=== PATIENT | female | born 1975 | race Caucasian/White ===

== ENCOUNTER 2020-10-02 17:38 | Emergency (ER) | payer BC ==
[2020-10-02 17:40] VITALS: O2SAT 100
[2020-10-02] MEDS ORDERED: Zofran 4 MG/2 ML VIAL IV ONE (17:44)
[2020-10-02] MEDS ORDERED: Hydromorphone 1 mg/ml Injection IV ONE ×4 (17:44→20:08)
[2020-10-02] MEDS ORDERED: Hydromorphone 1 mg/ml Injection ONE ×4 (17:46→21:07)
[2020-10-02] MEDS ORDERED: Sodium Chloride 0.9% 1000 ML 1,000 ML ONE ×2 (17:46→19:34)
[2020-10-02] MEDS ORDERED: Zofran 4 MG/2 ML VIAL ONE (17:46)
[2020-10-02] MEDS ORDERED: Sodium Chloride 0.9% 1000 ML 1,000 ML IV STA (18:04)
--- NOTE | 2020-10-02 18:22 | ERPHSYRPT ---
- History of Present Illness Historian: patient Exam Limitations: no limitations Patient Subjective Stated Complaint: Pt went to [facility] today and her liver enzymes are elevated and she began having more severe pain in the right quadrants and was told to come to the ER because she may have a bile duct obstruction Triage Nursing Assessment: Pt brought to the ER by her , hypertensive, rates pain as 9/10, appears to be in significant pain, denies recent N&V, skin n/w/d Physician History: 44 yo wf w RUQ pain x 3 days. Pt rates her pain a 10 and describes it as sharp/ache. It radiates to her back, and nothing makes better or worse. She has had nausea/loose stool wo vomiting/fever/melena/hematochezia/dysuria/hematuria. Pt was seen in clinic today and had labs w elevated LFT's and alkp. Timing/Duration: other (3 days) Quality: aching, sharpness Abdominal Pain Onset Location: RUQ Pain Radiation: back Severity of Pain-Max: severe Severity of Pain-Current: severe Modifying Factors: Improves With: nothing. Worsens With: analgesics, antacids, breathing, coughing, defecating, eating, exercise, lying down, movement, palpation, rest, urinating, vomiting, position, walking Associated Symptoms: loss of appetite, nausea, No back, No chest pain, No diaphoresis, No diarrhea, No fever/chills, No fatigue, No headache, No heartburn, No neck pain, No rash, No shortness of breath, No syncope, No vomiting, No weakness Allergies/Adverse Reactions: No Known Drug Allergies Allergy (Unverified 10/02/20 19:23) Travel Risk - International Travel Have you traveled outside of the country in past 3 weeks: No - Coronavirus Screening Are you exhibiting any of the following symptoms?: No Close contact with a COVID-19 positive Pt in past 14-21 Days: No - Vaccine Status Have you recieved a Covid-19 vaccination: Yes 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 [employer]: Moderna - Vaccination Dates Date of 2cond Vaccination (if applicable): 08/14/2020 - Review of Systems Constitutional: No Symptoms Eyes: No Symptoms Ears, Nose, & Throat: No Symptoms Respiratory: No Symptoms Cardiac: No Symptoms Abdominal/Gastrointestinal: Abdominal Pain, Nausea, Appetite Changes, No Vomiting, No Diarrhea, No Constipation, No Hematemesis, No Hematochezia, No Melena, No Dysphagia Genitourinary Symptoms: No Symptoms Musculoskeletal: No Symptoms Skin: No Symptoms Neurological: No Symptoms Psychological: No Symptoms Endocrine: No Symptoms Hematologic/Lymphatic: No Symptoms Immunological/Allergic: Pollen Allergy - Past Medical History Pertinent Past Medical History: No - Past Surgical History Past Surgical History: Yes Female Surgical History: Hysterectomy Other Surgical History: gastric bypass - Social History Smoking Status: Former smoker Exposure to second hand smoke: No Drug Use: none Patient Lives Alone: No Significant Family History: no pertinent family hx - Female History Hx Now: No - Nursing Vital Signs Nursing Vital Signs: Initial Vital Signs Temperature 98.3 F 10/02/20 17:39 Pulse Rate 63 10/02/20 17:39 Blood Pressure 160/86 10/02/20 17:39 O2 Sat by Pulse Oximetry 100 10/02/20 17:39 Pain Scale Pain Intensity 2 - Physical Exam General Appearance: mild distress Eye Exam: PERRL/EOMI, eyes nml inspection Ears, Nose, Throat Exam: normal ENT inspection, TMs normal, pharynx normal, moist mucous membranes Neck Exam: normal inspection, non-tender, supple, full range of motion, No meningismus, No mass, No Brudzinski, No Kernig's Respiratory Exam: normal breath sounds, lungs clear, airway intact, No respiratory distress Cardiovascular Exam: regular rate/rhythm, normal heart sounds, normal peripheral pulses, No murmur Gastrointestinal/Abdomen Exam: soft (Marked RUQ TTP wo guarding or rebound) Extremity Exam: normal inspection, normal range of motion Neurologic Exam: alert, oriented x 3, cooperative, 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 nml as tested, normal mood/affect, sensation nml Skin Exam: normal color, warm, dry Lymphatic Exam: No adenopathy SpO2 Interpretation: normal SpO2: 100 O2 Delivery: Room Air - Course Nursing assessment & vital signs reviewed: Yes - CT Exams Abdomen/Pelvis CT Interpretation: Discussed w/radiologist (Gallbladder wall thick ening/pericholecystic fluid/biliary distension) Ordered Tests: Active Orders 24 hr Category Date Time Status ABDOMEN AND PELVIS W CONTRAST [CT] Stat Exams 10/02/20 17:43 Taken Medication Summary Discontinued Medications Generic Name Dose Route Start Last Admin Trade Name Freq PRN Reason Stop Dose Admin Hydromorphone HCl 1 mg 10/02/20 17:44 10/02/20 17:48 Hydromorphone 1 Mg/Ml Injection IV 10/02/20 17:45 1 mg STAT ONE Administration Hydromorphone HCl Confirm 10/02/20 17:46 Hydromorphone 1 Mg/Ml Injection Administered 10/02/20 17:47 Dose 1 mg .ROUTE .STK-MED ONE Hydromorphone HCl 0.5 mg 10/02/20 18:03 10/02/20 18:05 Hydromorphone 1 Mg/Ml Injection IV 10/02/20 18:04 0.5 mg STAT ONE Administration Hydromorphone HCl Confirm 10/02/20 18:03 Hydromorphone 1 Mg/Ml Injection Administered 10/02/20 18:04 Dose 1 mg .ROUTE .STK-MED ONE Hydromorphone HCl 0.5 mg 10/02/20 19:02 10/02/20 19:11 Hydromorphone 1 Mg/Ml Injection IV 10/02/20 19:03 0.5 mg STAT ONE Administration Hydromorphone HCl Confirm 10/02/20 19:10 Hydromorphone 1 Mg/Ml Injection Administered 10/02/20 19:11 Dose 1 mg .ROUTE .STK-MED ONE Hydromorphone HCl 1 mg 10/02/20 20:08 10/02/20 21:21 Hydromorphone 1 Mg/Ml Injection IV 10/02/20 20:09 1 mg STAT ONE Administration Hydromorphone HCl Confirm 10/02/20 21:07 Hydromorphone 1 Mg/Ml Injection Administered 10/02/20 21:08 Dose 1 mg .ROUTE .STK-MED ONE Sodium Chloride Confirm 10/02/20 17:46 Sodium Chloride 0.9% 1000 Ml Administered 10/02/20 17:47 Dose 1,000 mls @ ud .ROUTE .STK-MED ONE Sodium Chloride 1,000 mls @ 999 mls/hr 10/02/20 18:04 10/02/20 19:20 Sodium Chloride 0.9% 1000 Ml IV 10/02/20 19:04 Infused .Q1H1M STA Infusion Piperacillin Sod/Tazobactam 100 mls @ 200 mls/hr 10/02/20 19:23 10/02/20 19:30 Sod 3.375 gm/ Sodium Chloride IV 10/02/20 19:52 200 mls/hr STAT ONE Administration Sodium Chloride Confirm 10/02/20 19:28 Sodium Chloride 100ml Mini-Bag Plus Administered 10/02/20 19:29 Dose 100 mls @ ud IV .STK-MED ONE Sodium Chloride 1,000 mls @ 125 mls/hr 10/02/20 19:45 10/02/20 19:37 Sodium Chloride 0.9% 1000 Ml IV 11/01/20 19:44 125 mls/hr .Q8H SAM Administration Sodium Chloride Confirm 10/02/20 19:34 Sodium Chloride 0.9% 1000 Ml Administered 10/02/20 19:35 Dose 1,000 mls @ ud .ROUTE .STK-MED ONE Ondansetron HCl 4 mg 10/02/20 17:44 10/02/20 17:49 Zofran 4 Mg/2 Ml Vial IV 10/02/20 17:45 4 mg STAT ONE Administration Ondansetron HCl Confirm 10/02/20 17:46 Zofran 4 Mg/2 Ml Vial Administered 10/02/20 17:47 Dose 4 mg .ROUTE .STK-MED ONE Piperacillin Sod/Tazobactam Sod Confirm 10/02/20 19:27 Zosyn 3.375 Gm Vial Administered 10/02/20 19:28 Dose 3.375 gm IV .STK-MED ONE Lab/Rad Data: AST 333/[id number] this AM - Progress Progress: improved Progress Note: 10/02/20 19:36 1mg IV Dilaudid 1L NS bolus 0.5mg IV Dilaudid 0.5mg IV Dilaudid zosyn 3.375mg IV Unable to do cholecystectomy at [place] due to Covid19 8 wks ago. Pt is asymptomatic and has been fully vaccinated. Spoke w [facility] and unable to do surgery at [place]. Dr. Cameron Woodruff accepted pt and will get bed at [facility]. Ok w Zosyn. 10/02/20 20:26 Pt pain free after additional 0.5mg IV dilaudid 10/02/20 20:45 10/02/20 23:06 0.5mg IV Dilaudid given before ambulance ride Pt stable and w minimal pain when ambulance crew assumed care. Discussed with : Katia Counseled pt/family regarding: rad results - Departure Departure Disposition: Transfer Clinical Impression: Cholecystitis Condition: Stable Critical Care Time: No Referrals: TRACIE SUE NP [Primary Care Provider] -
[2020-10-02] MEDS ORDERED: Zosyn 3.375 GM Vial 3.375 GM in Sodium Chloride 100ML MINI-BAG PLUS 100 ML IV ONE (19:23)
[2020-10-02] MEDS ORDERED: Zosyn 3.375 GM Vial IV ONE (19:27)
[2020-10-02] MEDS ORDERED: Sodium Chloride 100ML MINI-BAG PLUS 100 ML IV ONE (19:28)
[2020-10-02] MEDS ORDERED: Sodium Chloride 0.9% 1000 ML 1,000 ML IV SCH (19:45)
[2020-10-02 21:03] VITALS: BP 138/81; PULSE 88
--- NOTE | 2020-10-03 08:38 | XRAY ---
Indication: Right upper quadrant/epigastric pain. Multiple contiguous axial images obtained through the abdomen and pelvis using 80 cc Isovue 370 contrast. Comparison: None Lung bases demonstrates mild dependent atelectasis. No infiltrate or effusion. Heart is not enlarged. There has been gastric bypass surgery. Noncontrasted stomach and bowel loops appear nonobstructed. Normal appendix. Previous hysterectomy. Gallbladder is markedly distended with wall thickening, with a few tiny gallstones near the fundus, tiny pericholecystic fluid, and biliary tree distention concerning for acute cholecystitis. No walled off fluid collection or free air. Liver is enlarged measuring 21.7 cm. Spleen is also enlarged measuring 14 cm. Remaining pancreas, adrenal glands, kidneys, ureters, bladder, and aorta are unremarkable. No pathologic retroperitoneal lymphadenopathy. Osseous structures intact. Impression: 1. Abnormally distended gallbladder with a few tiny gallstones, wall thickening, pericholecystic fluid, and biliary distention concerning for acute cholecystitis. 2. Incidental hepatosplenomegaly and gastric bypass surgery.
== END 2020-10-02 21:44 | disposition short-term general hospital (02) ==
LOC: ED 17:38
DX: K81.9 Cholecystitis, unspecified (principal)
CPT/HCPCS: 74177; 96365; 96374; 96375; 96376; 99285; J1170; J2405